=== PATIENT | male | born 1975 | race African-American/Black ===

== ENCOUNTER 2019-02-07 08:39 | Emergency (ER) | payer SELFPAY ==
[~2019-02-07] VITALS: Ht 182.9 cm; Wt 85.7 kg
[2019-02-07 08:40] VITALS: Ht 182.9 cm; Wt 85.7 kg
[2019-02-07 09:38] LABS: BASOPHIL % 0.4 % (0-2); PLATELET COUNT 270 x10^3mcL (130-400); RED CELL DISTRIBUTION WIDTH 14.1 % (11.5-14.5)
[2019-02-07 09:42] LABS: CALCIUM 8.6 mg/dL (8.5-10.1); CARBON DIOXIDE 29.8 mmol/L (21-32); CREATININE SERUM 1.8 mg/dL (0.7-1.3)
[2019-02-07 09:47] LABS: ALBUMIN 3.7 g/dL (3.4-5.0); BILIRUBIN TOTAL 1.4 mg/dL (0.20-1.00); TOTAL PROTEIN, SERUM 7.4 g/dL (6.4-8.2)
[2019-02-07 10:23] VITALS: BP 135/78
== END 2019-02-07 10:40 | disposition home or self-care (01) ==
LOC: ED 08:39
PROVIDERS: Emergency Medicine
DX: N13.2 Hydronephrosis with renal and ureteral calculous obstruction (principal)
CPT/HCPCS: J1885; J7030

== ENCOUNTER 2019-02-15 09:40 | Emergency (ER) | payer SELFPAY ==
[~2019-02-15] VITALS: Ht 182.9 cm; Wt 88.9 kg
[2019-02-15 10:00] VITALS: BP 140/88; Ht 182.9 cm; Wt 88.9 kg
== END 2019-02-15 11:05 | disposition home or self-care (01) ==
LOC: ED 09:40
DX: R10.9 Unspecified abdominal pain (principal); Z87.442 Personal history of urinary calculi